=== PATIENT | female | born 1960 | race Caucasian/White ===

== ENCOUNTER 2021-11-09 22:49 | Emergency (ER) | payer MEDICARE, OTHER ==
[~2021-11-09 22:49] MED LIST: DIAZEPAM 5MG TAB5 MG PO; LIPITOR40 MG PO; MAG-OXIDE 400M400 MG PO; NORCO 5-325 TA1 EACH PO; PERCOCET 10/321 EACH PO; SYNTHROID112 MC1 PO; VENLAFAXINE HCL75 M1 PO; VITAMIN D35000 UNI1 PO; ZESTRIL5 MG PO
[2021-11-10 01:50] LABS: BASOPHIL 0.6 % (0-2); EOSINOPHIL 5.4 % (0-5); HCT 38.2 % (37.0-47.0); HGB 12.6 g/dl (12.5-16.0); LYMPHOCYTE 33.7 % (15-48); MCH 29.6 pg (25.0-31.0); MCV 89.7 fL (78.0-100.0); MONOCYTE 7.2 % (0-12); MPV 10.7 fL (6.0-9.5); NRBC 0; PLT 168 K/uL (150-400); RBC 4.26 M/uL (4.20-5.40); RDW 13.4 % (11.5-14.0); WBC 6.8 K/uL (4.0-10.5)
[2021-11-10 02:12] LABS: ALBUMIN 3.4 g/dL (3.4-5.0); BILIRUBIN - TOTAL 0.3 mg/dL (0.2-1.0); CREATININE 0.61 mg/dL (0.51-0.95); GLOBULIN (CALCULATION) 3.7 g/dL; TOTAL PROTEIN 7.1 g/dL (6.4-8.2)
[2021-11-10 04:02] LABS: BILIRUBIN NEGATIVE (NEGATIVE); BLOOD NEGATIVE Ery/uL (NEGATIVE); CLARITY CLEAR (CLEAR); COLOR YELLOW (YELLOW); GLUCOSE (U) NORMAL (NORMAL); LEUKOCYTES NEGATIVE Leu/uL (NEGATIVE); NITRITE NEGATIVE (NEGATIVE); PROTEIN NEGATIVE (NEGATIVE); pH 7.5 (5.0-9.0)
[2021-11-10 04:09] LABS: MARIJUANA (THC) POSITIVE (NEGATIVE)
[2021-11-10 04:10] LABS: AMPHETAMINES NEGATIVE (NEGATIVE); BARBITURATES NEGATIVE (NEGATIVE); ECSTASY (MDMA) NEGATIVE (NEGATIVE); METHADONE NEGATIVE (NEGATIVE); OPIATES POSITIVE (NEGATIVE); OXYCODONE NEGATIVE (NEGATIVE)
[2021-11-10 04:15] LABS: URINARY WBC RARE
[2021-11-10 04:16] LABS: AMORPHOUS PHOSPHATE CRYSTALS MODERATE; BACTERIA TRACE
== END 2021-11-10 05:55 | disposition home or self-care (01) ==
LOC: FER 22:49
PROVIDERS: Emergency Medicine
DX: M54.50 Low back pain, unspecified (principal); I10 Essential (primary) hypertension; E03.9 Hypothyroidism, unspecified; Z86.73 Personal history of transient ischemic attack (TIA), and cerebral infarction without residual deficits; Z88.1 Allergy status to other antibiotic agents; Z88.2 Allergy status to sulfonamides; Z88.8 Allergy status to other drugs, medicaments and biological substances; Z79.899 Other long term (current) drug therapy; Z79.890 Hormone replacement therapy; W19.XXXA Unspecified fall, initial encounter; Y92.009 Unspecified place in unspecified non-institutional (private) residence as the place of occurrence of the external cause
CPT/HCPCS: 36415; 75635; 80053; 80305; 81001; 85025; J1170; Q9967